=== PATIENT | female | born 2000 | race Caucasian/White ===

== ENCOUNTER 2022-04-23 08:55 | Emergency (ER) | payer OTHER ==
[~2022-04-23] VITALS: Ht 170.2 cm; Wt 74.1 kg
[2022-04-23] MEDS ORDERED: ETON68IM SC (09:15)
[2022-04-23 11:12] VITALS: BP 131/69
== END 2022-04-23 11:14 | disposition home or self-care (01) ==
LOC: M ED 08:55
DX: U07.1 COVID-19 (principal); F17.290 Nicotine dependence, other tobacco product, uncomplicated; Z91.02 Food additives allergy status

== ENCOUNTER 2023-01-14 07:43 | Day surgery (SDC) | payer OTHER ==
[~2023-01-14] VITALS: Ht 170.2 cm; Wt 80.3 kg
[~2023-01-14 07:43] MED LIST: ETON68IM SC; LEXA1TAB2 PO; LO LTAB PO; TRANEXAMIC ACID 100 MG/ML 10ML VIAL IV ONE; TRAZ-252 PO; ceFAZolin SOD 2 GM in IV 1 EA IV ONE
[2023-01-14] MEDS ORDERED: LR 1,000 ML IV SCH ×2 (07:55→13:25)
[2023-01-14] MEDS ORDERED: TRANEXAMIC ACID 100 MG/ML 10ML VIAL As Ordered ONE (10:30)
[2023-01-14] MEDS ORDERED: fentaNYL 100 MCG/2 ML INJECTION As Ordered ONE (12:55)
[2023-01-14] MEDS ORDERED: oxyCODONE 5MG TAB PO PRN (13:25)
[2023-01-14] MEDS ORDERED: ONDANSETRON 4MG 2ML VIAL IV PRN (13:25)
[2023-01-14] MEDS ORDERED: SUGAMMADEX SODIUM 500 MG/5 ML VIAL (BRIDION) As Ordered ONE (13:30)
[2023-01-14] MEDS ORDERED: ROCURONIUM BROMIDE 50MG/5ML VIAL As Ordered ONE (13:30)
[2023-01-14] MEDS ORDERED: LIDOCAINE 2% 100MG/5ML SDV (FOR ANES.) As Ordered ONE (13:30)
[2023-01-14] MEDS ORDERED: fentaNYL 250 MCG/5 ML INJECTION As Ordered ONE (13:30)
[2023-01-14] MEDS ORDERED: ONDANSETRON 4MG 2ML VIAL As Ordered ONE (13:30)
[2023-01-14] MEDS ORDERED: dexmedeTOMIDine (4MCG/ML)200MCG/50ML BTL (PRECEDEX) As Ordered ONE (13:30)
[2023-01-14] MEDS ORDERED: ACETAMINOPHEN 1000MG 100ML IV BAG As Ordered ONE (13:30)
[2023-01-14] MEDS ORDERED: METOCLOPRAMIDE INJ 10MG/2ML VIAL As Ordered ONE (13:30)
[2023-01-14] MEDS ORDERED: propofoL 200 MG/20 ML VIAL As Ordered ONE (13:30)
[2023-01-14] MEDS ORDERED: KETOROLAC 60MG 2ML VIAL As Ordered ONE (13:30)
[2023-01-14] MEDS ORDERED: MIDAZOLAM INJ 2MG/2ML VIAL As Ordered ONE (13:30)
[2023-01-14] MEDS: fentaNYL 100 MCG/2 ML INJECTION IV PRN ×2 (13:39→13:45)
[2023-01-14] MEDS: HYDROMORPHONE HCL 0.5 MG/ 0.5 ML SYRINGE IV PRN ×2 (13:53→14:00)
[2023-01-14 14:50] VITALS: BP 123/68; TEMP 98.3; O2SAT 98
== END 2023-01-14 15:20 | disposition home or self-care (01) ==
LOC: M SDC 07:43
PROVIDERS: ATTEND Orthopaedic Surgery
DX: M25.371 Other instability, right ankle (principal); M24.271 Disorder of ligament, right ankle
CPT/HCPCS: 27698; 76000; 81025; C1713; C9290; J0131; J0665; J0690; J1100; J1170; J1885; J2250; J2405; J2765; J3010

== ENCOUNTER 2023-08-18 13:53 | Emergency (ER) | payer OTHER ==
[~2023-08-18] VITALS: Ht 170.2 cm; Wt 86.1 kg
[~2023-08-18 13:53] MED LIST changes: -TRANEXAMIC ACID 100 MG/ML 10ML VIAL IV ONE; -ceFAZolin SOD 2 GM in IV 1 EA IV ONE
[2023-08-18] MEDS ORDERED: CYMB60CA4 PO (14:02)
[2023-08-18] MEDS ORDERED: IBUP80TA PO (14:02)
[2023-08-18] MEDS ORDERED: GABA-282 PO (16:00)
[2023-08-18] MEDS: GABAPENTIN 300 MG CAP PO ONE (16:04)
[2023-08-18 16:06] LABS: BASO # 0.1 10^3/uL (0.0-0.2); BASO % 0.5 % (0.0-1.0); EOS % 0.2 % (0.0-3.0); HEMATOCRIT 41.1 % (36.0-47.0); HEMOGLOBIN 14.7 g/dl (12.0-15.5); LYMPH % 30.4 % (24.0-44.0); MEAN CORPUSCULAR HEMOGLOBIN 30.5 pg (27.0-33.0); MEAN CORPUSCULAR HGB CONC 35.8 g/dl (32.0-36.5); MEAN CORPUSCULAR VOLUME 85.3 fl (80.0-96.0); MONO # 0.7 10^3/uL (0.0-0.8); MONO % 7.3 % (2.0-8.0); NEUTROPHILS % 61.4 % (36.0-66.0); PLATELET COUNT, AUTOMATED 380 10^3/uL (150-450); RED BLOOD COUNT 4.82 10^6/uL (4.00-5.40); WHITE BLOOD COUNT 9.8 10^3/uL (4.0-10.0)
[2023-08-18 16:09] LABS: ERYTHROCYTE SEDIMENTATION RATE 6 mm/hr (0-20)
[2023-08-18 16:36] LABS: C REACTIVE PROTEIN QUANTITATIV < 0.40 MG/DL (<1.0)
[2023-08-18 16:38] LABS: BLOOD UREA NITROGEN 12 MG/DL (9-23); CALCIUM LEVEL 9.1 MG/DL (8.5-10.1); CARBON DIOXIDE LEVEL 25 MMOL/L (20-31); CHLORIDE LEVEL 106 MMOL/L (98-107); CREATININE FOR GFR 0.63 MG/DL (0.55-1.30); GLOMERULAR FILTRATION RATE > 60.0 (>60); GLUCOSE, FASTING 97 MG/DL (60-100); POTASSIUM SERUM 3.9 MMOL/L (3.5-5.1); SODIUM LEVEL 137 MMOL/L (136-145)
[2023-08-18 16:40] LABS: URIC ACID 5.2 MG/DL (3.1-7.8)
[2023-08-18 17:39] VITALS: BP 121/78; TEMP 98.8; O2SAT 99
== END 2023-08-18 17:41 | disposition home or self-care (01) ==
LOC: M ED 13:53
DX: M25.571 Pain in right ankle and joints of right foot (principal); G90.521 Complex regional pain syndrome I of right lower limb; F41.9 Anxiety disorder, unspecified; Z91.048 Other nonmedicinal substance allergy status; Z79.1 Long term (current) use of non-steroidal anti-inflammatories (NSAID); Z79.899 Other long term (current) drug therapy

== ENCOUNTER 2023-10-14 12:12 | Emergency (ER) | payer OTHER ==
[~2023-10-14] VITALS: Ht 170.2 cm; Wt 88.2 kg
[~2023-10-14 12:12] MED LIST changes: +CYMB60CA4 PO; +GABA-282 PO; +IBUP80TA PO
[2023-10-14] MEDS ORDERED: PANT40TA29 PO (12:18)
[2023-10-14 15:33] VITALS: BP 130/76; TEMP 98.4; O2SAT 99
== END 2023-10-14 15:42 | disposition home or self-care (01) ==
LOC: M ED 12:12
DX: B34.8 Other viral infections of unspecified site (principal); Z79.899 Other long term (current) drug therapy